=== PATIENT | female | born 1980 | race Caucasian/White ===

== ENCOUNTER 2025-05-17 07:28 | Emergency (ER) | payer SELFPAY ==
[~2025-05-17] VITALS: Ht 172.7 cm; Wt 68.0 kg
[2025-05-17 07:34] VITALS: O2SAT 100
[2025-05-17] MEDS: MORPHINE SULFATE 4 MG/ML INJ (FOR IV/IM USE) IV ONE (08:11)
[2025-05-17] MEDS: ONDANSETRON HCL 4MG/2ML INJ IV ONE (08:12)
[2025-05-17] MEDS: LACTATED RINGERS 1,000 ML IV SCH (08:14)
[2025-05-17 08:20] LABS: BASOPHILS % 1.1 % (0.0-2.0); EOSINOPHILS % 0.2 % (0.0-5.0); HEMATOCRIT. 40.1 % (36.0-48.0); HEMOGLOBIN. 13.3 g/dL (12.0-16.0); LYMPHOCYTES % 24.7 % (20.0-50.0); MEAN PLATELET VOLUME 7.6 fl (7.4-10.4); MONOCYTES % 4.2 % (2.0-8.0); NEUTROPHILS % 69.8 % (40.0-76.0); PLATELET 231 x1000/uL (130-400); RED BLOOD CELL COUNT 4.27 mill/uL (4.2-5.4); RED CELL DISTRIBUTION WIDTH 13.8 % (11.6-14.6)
[2025-05-17 08:34] LABS: CREATININE 0.9 mg/dL (0.6-1.0); UREA NITROGEN BLOOD 12 mg/dL (9-23)
[2025-05-17 08:40] LABS: ASPARTATE AMINOTRANSFERASE 42 IU/L (<34); BILIRUBIN DIRECT 0.2 mg/dL (<=3.0); BILIRUBIN TOTAL 0.6 mg/dL (0.1-1.0); PROTEIN TOTAL 6.7 g/dL (6.0-8.3)
[2025-05-17 09:41] LABS: HCG SCREEN NEGATIVE
[2025-05-17 12:28] LABS: CLARITY URINE CLEAR (CLEAR); COLOR URINE YELLOW (YELLOW); GLUCOSE URINE NEGATIVE (NEGATIVE); KETONES URINE TRACE (NEGATIVE); LEUKOCYTE ESTERASE URINE NEGATIVE (NEGATIVE); NITRITE URINE NEGATIVE (NEGATIVE); OCCULT BLOOD URINE 1+ (NEGATIVE); PH URINE 7.5 (4.5-8.0); PROTEIN URINE NEGATIVE (NEGATIVE); SPECIFIC GRAVITY URINE 1.008 (1.005-1.030); UROBILINOGEN URINE 0.2 E.U./dL (0.2-1.0)
[2025-05-17 12:52] LABS: SQUAMOUS EPITHELIAL CELL URINE FEW /lpf (RARE/1+)
[2025-05-17 12:53] LABS: BACTERIA URINE NONE SEEN; RBC URINE 0-2 /hpf (0-2); WBC URINE NONE SEEN /hpf (0-2)
[2025-05-17 14:38] VITALS: BP 111/62; PULSE 66; RESP 15; TEMP 36.6; O2SAT 100
[2025-05-17] MEDS ORDERED: FAMOTIDINE 20MG/2ML VIAL IV ONE (15:21)
[2025-05-17] MEDS ORDERED: ACETAMINOPHEN 1000MG/100ML 100 ML IV ONE (15:21)
[2025-05-17] MEDS ORDERED: FENTANYL CITRATE/PF 50MCG/ML 2ML VIAL ONE ×2 (15:27→16:23)
[2025-05-17] MEDS ORDERED: PROPOFOL 200MG/20ML VIAL IV ONE (15:27)
[2025-05-17] MEDS ORDERED: MIDAZOLAM HCL 2 MG/2 ML VIAL ONE (15:28)
[2025-05-17] MEDS ORDERED: ROCURONIUM BROMIDE 10MG/ML VIAL 5ML IV ONE ×2 (15:29)
[2025-05-17] MEDS ORDERED: ONDANSETRON HCL 4MG/2ML INJ IV PRN (15:30)
[2025-05-17] MEDS ORDERED: HYDROMORPHONE HCL/PF 1MG/ML INJ IV PRN (15:30)
[2025-05-17] MEDS ORDERED: LIDOCAINE HCL 1% 20ML VIAL ONE (15:47)
[2025-05-17] MEDS ORDERED: METOCLOPRAMIDE HCL 10MG/2ML VIAL ONE (15:47)
[2025-05-17] MEDS ORDERED: GLYCOPYRROLATE 0.2 MG/ML 2ML VIAL ONE ×2 (16:38)
[2025-05-17] MEDS ORDERED: NEOSTIGMINE METHYLSULFATE 1MG/ML 10 ML VIAL ONE (16:38)
[2025-05-17] MEDS ORDERED: SKIN ADHESIVE 0.7 GM EA TOP ONE (16:45)
[2025-05-17] MEDS ORDERED: IBUPROFEN 600MG TABLET PO PRN (18:15)
[2025-05-17 18:24] VITALS: TEMP 98.1
[2025-05-17] MEDS: ACETAMINOPHEN 500MG TABLET PO PRN (18:24)
== END 2025-05-17 15:00 | disposition admitted as inpatient to this hospital (09) ==
LOC: ER 07:28 → EDBEDREQTM 13:03 → EDBEDREQ 13:03 → ER 15:00 → CMPBEDREQ 05-19 07:38
DX: N83.511 Torsion of right ovary and ovarian pedicle (principal)
CPT/HCPCS: 49320; 80076; 80048; 81003; 84703; 83690; 85025; 86850; 86900; 86901; 86920; 36415; 74176; 93976; 76830; 76856; 96361; 96374; 96375; 99285; J3010; J1308; J3490 ×2; J2003; J2765; J2250; J2710; J2405; J2704; J2270; Z7610 ×23; C1725; A4615; J0131